=== PATIENT | male | born 1965 | race Caucasian/White ===

== ENCOUNTER 2016-08-12 10:22 | Outpatient (CLI) | payer OTHER ==
[2016-08-12 12:02] LABS: Bilirubin Negative (Negative); Blood, Urine Trace (Negative); Clarity Clear (Clear); Glucose, Urine (Dipstick) Negative (Negative); Leukocyte Negative (Negative); Nitrite Negative (Negative); Protein, Urine (Dipstick) > or equal to 300 mg/dL (Neg-Trace); Specific Gravity, Urine 1.025 (1.005-1.030)
[2016-08-12 12:14] LABS: Anion Gap 15 mmol/L (10-20); BUN (Urea Nitrogen) 21 mg/dL (8.9-20.6); Calc. Creatinine Clearance 0 mL/min (70-130); Calcium 9.1 mg/dL (7.8-10.44); Carbon Dioxide 24 mmol/L (22-29); Chloride 104 mmol/L (98-107); Estimated GFR-MDRD 51; Glucose 103 mg/dL (70-105); Potassium 4.2 mmol/L (3.5-5.1); Sodium 139 mmol/L (136-145)
[2016-08-12 12:23] LABS: RBC/HPF 0-3 HPF (0-3); WBC/HPF None Seen HPF (0-3)
[2016-08-12 12:24] LABS: Bacteria/HPF Rare-Few HPF (None Seen); Squamous Epithelial 0-3 HPF (0-3)
[2016-08-12 18:12] LABS: Creatinine, Urine 92.18 mg/dL (63-166)
== END 2016-08-12 10:23 | disposition home or self-care (01) ==
LOC: NAV LAB 10:22
PROVIDERS: ATTEND Internal Medicine Nephrology
DX: N18.3 Chronic kidney disease, stage 3 (moderate) (principal)
CPT/HCPCS: 36415; 80048; 81001; 82570; 84156

== ENCOUNTER 2016-09-01 10:01 | Outpatient (CLI) | payer OTHER ==
[2016-09-01 11:05] LABS: Anion Gap 15 mmol/L (10-20); BUN (Urea Nitrogen) 22 mg/dL (8.9-20.6); Calc. Creatinine Clearance 0 mL/min (70-130); Calcium 8.9 mg/dL (7.8-10.44); Carbon Dioxide 27 mmol/L (22-29); Chloride 102 mmol/L (98-107); Estimated GFR-MDRD 53; Glucose 120 mg/dL (70-105); Potassium 3.8 mmol/L (3.5-5.1); Sodium 140 mmol/L (136-145)
[2016-09-01 17:35] LABS: HBSAg Index 0.39 S/CO (0-0.99); HIV (1/2) Antibody/Antigen Non-Reactive (NonReactive); HIV 1/2 INDEX 0.16 S/CO (<1.00); Hep B Surf Ag Non-Reactive S/CO (NonReactive); Hep C IgG Ab Non-Reactive (NonReactive); Hep C Index 0.12 S/CO (0-0.79)
[2016-09-03 09:14] LABS: Antinuclear AB Negative (Negative)
== END 2016-09-01 10:02 | disposition home or self-care (01) ==
LOC: NAV LAB 10:01
PROVIDERS: ATTEND Internal Medicine Nephrology
DX: N18.3 Chronic kidney disease, stage 3 (moderate) (principal)
CPT/HCPCS: 36415; 80048; 84165; 84166; 86038; 86160; 86256; 86803; 87340; 87389

== ENCOUNTER 2020-09-24 16:59 | Emergency (ER) | payer MEDICARE ==
[2020-09-24 17:46] LABS: Bilirubin Small (Negative); Glucose, Urine (Dipstick) 100 mg/dL (Negative); Ketone, Urine Negative (Negative); Leukocyte Trace (Negative); Nitrite Negative (Negative); Protein, Urine (Dipstick) > or equal to 300 mg/dL (Neg-Trace); Specific Gravity, Urine 1.025 (1.005-1.030); pH, Urine 7.5 (5.0-9.0)
[2020-09-24 17:48] LABS: Clarity Turbid (Clear)
[2020-09-24 17:49] LABS: Blood, Urine Large (Negative)
[2020-09-24 17:50] LABS: RBC/HPF Greater than 50 HPF (0-3)
[2020-09-24 17:51] LABS: Renal Epithelial 0-3 HPF (None Seen); Squamous Epithelial 0-3 HPF (0-3)
[2020-09-24 18:20] LABS: #Basophils 0.1 thou/uL (0.0-0.2); #Eosinphils 0.3 thou/uL (0.0-0.7); #Lymphocytes 1.1 thou/uL (1.20-3.40); #Monocytes 0.6 thou/uL (0.11-0.59); %Basophils 0.9 % (0.0-1.0); %Eosinophils 2.6 % (0.0-10.0); %Lymphocytes 9.1 % (21.0-51.0); %Monocytes 4.9 % (0.0-10.0); %Neutrophils 82.5 % (42.0-75.0); Hemoglobin 16.6 g/dL (14.0-18.0); Mean Corpuscular HGB CONC 31.4 g/dL (32.0-36.0); Mean Corpuscular Hemoglobin 29.1 pg (27.0-31.0); Mean Corpuscular Volume 92.6 fL (78.0-98.0); Mean Platelet Volume 7.3 fL (7.4-10.4); Platelet Count 268 thou/uL (130-400); RBC Distribution Width 13.9 % (11.5-14.5); Red Blood Cell (RBC) Count 5.69 mill/uL (4.70-6.10); White Blood Cell (WBC) Count 12.2 thou/uL (4.8-10.8)
[2020-09-24 18:31] LABS: Anion Gap 16 mmol/L (10-20); BUN (Urea Nitrogen) 11 mg/dL (8.4-25.7); Calc. Creatinine Clearance 0 mL/min (70-130); Calcium 8.7 mg/dL (7.8-10.44); Carbon Dioxide 27 mmol/L (22-29); Chloride 98 mmol/L (98-107); Glucose 118 mg/dL (70-105); Potassium 3.6 mmol/L (3.5-5.1); Sodium 137 mmol/L (136-145)
[2020-09-24] MEDS ORDERED: Sodium Chloride 0.9% 1,000 ML ONE (19:06)
[2020-09-24] MEDS ORDERED: Piperacillin/Tazobactam 4.5 GM VIAL ONE (19:06)
[2020-09-24] MEDS ORDERED: Sodium Chloride 0.9% 100 ML ONE (19:07)
[2020-09-24] MEDS ORDERED: Vancomycin HCl 500 MG VIAL ONE (20:15)
[2020-09-24] MEDS ORDERED: Sodium Chloride 0.9% 500 ML ONE (20:15)
== END 2020-09-24 22:45 | disposition home or self-care (01) ==
LOC: NAV ERS 16:59
DX: A41.9 Sepsis, unspecified organism (principal); E86.0 Dehydration; I10 Essential (primary) hypertension; R31.0 Gross hematuria; E66.9 Obesity, unspecified; Z79.82 Long term (current) use of aspirin; Z79.899 Other long term (current) drug therapy
CPT/HCPCS: 71045; 80048; 81003; 81015; 83605; 85025; 87040; 87086; 96365; 96366; 96367; J2543; J3370; J3490; J7030; J7050

== ENCOUNTER 2020-10-05 14:26 | Emergency (ER) | payer MEDICARE ==
[2020-10-05 15:17] LABS: Hemoglobin 14.4 g/dL (14.0-18.0); Mean Corpuscular HGB CONC 31.6 g/dL (32.0-36.0); Mean Corpuscular Hemoglobin 29.3 pg (27.0-31.0); Mean Corpuscular Volume 92.7 fL (78.0-98.0); Mean Platelet Volume 8.1 fL (7.4-10.4); Platelet Count 251 thou/uL (130-400); RBC Distribution Width 14.6 % (11.5-14.5); Red Blood Cell (RBC) Count 4.91 mill/uL (4.70-6.10); White Blood Cell (WBC) Count 27.5 thou/uL (4.8-10.8)
[2020-10-05] MEDS ORDERED: Sodium Chloride 0.9% 1,000 ML ONE (15:19)
[2020-10-05] MEDS ORDERED: Sodium Chloride 0.9% 500 ML ONE (15:22)
[2020-10-05 15:31] LABS: ALT (SGPT) 22 U/L (8-55); AST (SGOT) 19 U/L (5-34); Albumin 3.1 g/dL (3.5-5.0); Alkaline Phosphatase 136 U/L (40-110); Anion Gap 18 mmol/L (10-20); BUN (Urea Nitrogen) 38 mg/dL (8.4-25.7); Bilirubin, Total 0.6 mg/dL (0.2-1.2); Calc. Creatinine Clearance 0 mL/min (70-130); Calcium 8.2 mg/dL (7.8-10.44); Carbon Dioxide 23 mmol/L (22-29); Chloride 93 mmol/L (98-107); Globulin 3.1 g/dL (2.4-3.5); Glucose 177 mg/dL (70-105); Potassium 3.3 mmol/L (3.5-5.1); Protein, Total 6.2 g/dL (6.0-8.3); Sodium 131 mmol/L (136-145)
[2020-10-05 15:42] LABS: Band 20 % (5-11); Eosinophils 6 % (0-10); Lymphocytes 7 % (21-51); MDiff Complete? YES; Monocytes 1 % (0-10); Neutrophil 66 % (42-75); Platelet Morphology Comment Appears Adequate; RBC Morphology Normal
[2020-10-05] MEDS ORDERED: Acetaminophen 500 MG TAB ONE (15:53)
[2020-10-05] MEDS ORDERED: Lidocaine 1% (PF) 30 ML VIAL ONE (16:05)
[2020-10-05 18:27] LABS: SARS-CoV-2 NAA Rapid Test Not Detected (NotDetected)
[2020-10-05 19:52] LABS: Lactic Acid 1.5 mmol/L (0.5-2.2)
== END 2020-10-05 19:42 | disposition short-term general hospital (02) ==
LOC: NAV ERS 14:26
DX: A41.9 Sepsis, unspecified organism (principal); L03.90 Cellulitis, unspecified; Z20.822 Contact with and (suspected) exposure to COVID-19; I10 Essential (primary) hypertension; Z79.82 Long term (current) use of aspirin; Z79.899 Other long term (current) drug therapy
CPT/HCPCS: 0240U; 71045; 80053; 83605; 85025; 87040; 36556; 96365; 96366; J2001; J3370; J7030; J7050